=== PATIENT | female | born 1955 | race Caucasian/White ===

== ENCOUNTER 2017-08-28 11:56 | Inpatient (IN) | payer OTHER ==
[~2017-08-28] VITALS: Ht 162.6 cm; Wt 107.6 kg
[2017-08-28] MEDS ORDERED: ONDANSETRON 2MG/ML, 2ML ONE (12:07)
[2017-08-28] MEDS ORDERED: NALOXONE 0.4 MG/ML, 1ML ONE ×2 (12:07→12:51)
[2017-08-28] MEDS: NALOXONE 0.4 MG/ML, 1ML IVPush PRN ×2 (12:10→12:53)
[2017-08-28] MEDS ORDERED: SODIUM CHLORIDE FLUSH 10ML SYR IVF ONE (12:30)
[2017-08-28] MEDS ORDERED: ONDANSETRON 2MG/ML, 2ML IVPush ONE (12:30)
[2017-08-28 12:35] LABS: MEAN CORPUSCULAR HEMOGLOBIN 32.8 pg (27.0-34.8); MEAN CORPUSCULAR HGB CONC 33.1 g/dL (32.4-35.8); PLATELET COUNT 226 x10^3/uL (130-400); RED BLOOD COUNT 4.84 x10^6/uL (3.82-5.3); RED CELL DISTRIBUTION WIDTH 15.1 % (9.6-15.2)
[2017-08-28 12:47] LABS: ALANINE AMINOTRANSFERASE 35 U/L (12-78); ALBUMIN 3.5 g/dL (3.4-5.0); ANION GAP 8 mmol/L (5-15); CALCIUM 7.3 mg/dL (8.5-10.1); CHLORIDE 101 mmol/L (98-107); CREATININE 1.74 mg/dL (0.55-1.02); SALICYLATE LEVEL 3.8 mg/dL (2.8-20.0)
[2017-08-28 12:49] LABS: ALKALINE PHOSPHATASE 81 U/L (45-117); BILIRUBIN,TOTAL 0.3 mg/dL (0.2-1.0); TOTAL PROTEIN 7.5 g/dL (6.4-8.2)
[2017-08-28 12:55] LABS: MD YES
[2017-08-28] MEDS ORDERED: SIMV20TA3 PO (12:55)
[2017-08-28] MEDS ORDERED: MELO15TA24 PO (12:55)
[2017-08-28] MEDS ORDERED: OXYB5TAB7 PO (12:55)
[2017-08-28] MEDS ORDERED: CHLO10CA6 PO (12:55)
[2017-08-28] MEDS ORDERED: OXYC5TAB3 PO (12:55)
[2017-08-28] MEDS ORDERED: PANT40TA5 PO (12:55)
[2017-08-28] MEDS ORDERED: LEVO112T2 PO (12:55)
[2017-08-28] MEDS ORDERED: PREG75CA PO (12:55)
[2017-08-28] MEDS ORDERED: DICY10CA3 PO (12:55)
[2017-08-28] MEDS ORDERED: VENL25TA PO (12:55)
[2017-08-28 12:56] LABS: ACETAMINOPHEN < 2 mcg/mL (10-30)
[2017-08-28 12:57] LABS: LYMPH#(MANUAL) 1.91 x10^3/uL (1-3.4); LYMPHS% (MANUAL) 8 % (22-44); MONOS#(MANUAL) 2.39 x10^3/uL (0.3-2.7); MONOS% (MANUAL) 10 % (2-9)
[2017-08-28] MEDS ORDERED: NALOXONE 4 MG in SODIUM CHLORIDE 0.9% 1,000 ML IV SCH ×2 (13:00→23:30)
[2017-08-28] MEDS ORDERED: NALOXONE 0.4 MG/ML, 1ML IVPush ONE (13:00)
[2017-08-28 13:03] LABS: BAND#(MANUAL) 2.39 x10^3/uL; BANDS%(MANUAL) 10 % (0-7); NRBC % (MANUAL) 1 % (0-1)
[2017-08-28 13:04] LABS: SEGS% (MANUAL) 72 % (42-75)
[2017-08-28 13:06] LABS: <PLATELET ESTIMATE> ADEQUATE; <PLT MORPHOLOGY> NORMAL PLT MORPH
[2017-08-28 13:08] LABS: ANISOCYTOSIS 1+; PMNS WITH VACUOLES 1+; POLYCHROMASIA 1+
[2017-08-28 13:27] LABS: MICROSCOPIC INDICATED
[2017-08-28] MEDS ORDERED: CEFTRIAXONE PMX 1GM/50ML 50 ML IV ONE (13:30)
[2017-08-28 13:33] LABS: AMPHETAMINE SCREEN, URINE Negative (Negative); BARBITURATE SCREEN, URINE Negative (Negative); BENZODIAZEPINE SCREEN, URINE Positive (Negative); CANNABINOID SCREEN, URINE Positive (Negative); COCAINE SCREEN, URINE Negative (Negative); METHADONE SCREEN, URINE Negative (Negative); OPIATE SCREEN, URINE Positive (Negative)
[2017-08-28 13:44] LABS: CULTURE INDICATED? NO
[2017-08-28] MEDS ORDERED: CEFTRIAXONE PMX 1GM/50ML 50 ML ONE (13:48)
[2017-08-28] MEDS ORDERED: SODIUM CHLORIDE 0.9% 1,000ML IVBOLUS ONE (14:00)
[2017-08-28] MEDS ORDERED: CYCL5TAB PO (14:20)
[2017-08-28] MEDS ORDERED: AMIT10TA PO (14:20)
[2017-08-28] MEDS ORDERED: DOCUSATE 100 MG CAPSULE PO PRN (14:30)
[2017-08-28] MEDS ORDERED: POLYETHYLENE GLYCOL 17 GM PACKET PO PRN (14:30)
[2017-08-28] MEDS ORDERED: BISACODYL 10 MG SUPP PR PRN (14:30)
[2017-08-28] MEDS ORDERED: ONDANSETRON 2MG/ML, 2ML IVPush PRN (14:30)
[2017-08-28] MEDS ORDERED: METRONIDAZOLE PMX 500MG/100ML 100 ML ONE (14:51)
[2017-08-28] MEDS: METRONIDAZOLE PMX 500MG/100ML 100 ML IV SCH ×2 (15:04→22:15)
[2017-08-28] MEDS: SODIUM CHLORIDE 0.9% 1,000 ML IV SCH (15:04)
[2017-08-28 16:35] VITALS: BP 106/68
[2017-08-28] MEDS: HEPARIN 5,000 UNITS/ML, 1ML SQ SCH (17:06)
[2017-08-28] MEDS: NICOTINE 7 MG/24 HR PATCH.TD24 TD SCH (17:19)
[2017-08-28] MEDS ORDERED: FAMOTIDINE 20 MG/2 ML IVPush SCH (21:00)
[2017-08-29] MEDS: HEPARIN 5,000 UNITS/ML, 1ML SQ SCH ×3 (00:03→16:09)
[2017-08-29] MEDS: NALOXONE 4 MG in SODIUM CHLORIDE 0.9% 1,000 ML IV SCH ×2 (00:03→09:33)
[2017-08-29] MEDS: SODIUM CHLORIDE 0.9% 1,000 ML IV SCH (00:29)
[2017-08-29 04:35] LABS: MEAN CORPUSCULAR HGB CONC 33.5 g/dL (32.4-35.8); MEAN CORPUSCULAR VOLUME 98.7 fL (80-100); MEAN PLATELET VOLUME 8.2 fL (7.4-10.4); PLATELET COUNT 205 x10^3/uL (130-400); RED BLOOD COUNT 4.36 x10^6/uL (3.82-5.3)
[2017-08-29 04:41] LABS: ALANINE AMINOTRANSFERASE 119 U/L (12-78); ALBUMIN 3.1 g/dL (3.4-5.0); ANION GAP 5 mmol/L (5-15); CALCIUM 7.4 mg/dL (8.5-10.1); CHLORIDE 109 mmol/L (98-107); CREATININE 0.78 mg/dL (0.55-1.02)
[2017-08-29 04:42] VITALS: BP 108/92
[2017-08-29 04:44] LABS: ALKALINE PHOSPHATASE 63 U/L (45-117); BILIRUBIN,TOTAL 0.4 mg/dL (0.2-1.0); TOTAL PROTEIN 6.7 g/dL (6.4-8.2)
[2017-08-29 05:01] LABS: MD YES
[2017-08-29 05:03] LABS: <PLATELET ESTIMATE> ADEQUATE; <PLT MORPHOLOGY> NORMAL PLT MORPH; ANISOCYTOSIS 1+; BAND#(MANUAL) 1.11 x10^3/uL; BANDS%(MANUAL) 5 % (0-7); LYMPH#(MANUAL) 1.77 x10^3/uL (1-3.4); LYMPHS% (MANUAL) 8 % (22-44); MONOS#(MANUAL) 0.88 x10^3/uL (0.3-2.7); MONOS% (MANUAL) 4 % (2-9); POLYCHROMASIA 1+; SEG#(MANUAL) 18.34 x10^3/uL (1.8-6.8); SEGS% (MANUAL) 83 % (42-75)
[2017-08-29] MEDS: METRONIDAZOLE PMX 500MG/100ML 100 ML IV SCH ×2 (05:26→16:08)
[2017-08-29] MEDS ORDERED: SODIUM PHOSPHATE 20 MMOL in SODIUM CHLORIDE 0.9% 500 ML IV ONE (07:30)
[2017-08-29] MEDS ORDERED: CEFTRIAXONE PMX 1GM/50ML 50 ML IV SCH (11:00)
[2017-08-29 13:08] VITALS: BP 149/83
[2017-08-29] MEDS: CEFTRIAXONE 2 GM in DEXTROSE 5% 50 ML IV SCH (14:55)
[2017-08-29] MEDS: NICOTINE 7 MG/24 HR PATCH.TD24 TD SCH (16:09)
[2017-08-29 18:51] VITALS: BP 125/68
[2017-08-29] MEDS: ACETAMINOPHEN 325 MG TABLET PO PRN (21:27)
[2017-08-30] MEDS: HEPARIN 5,000 UNITS/ML, 1ML SQ SCH ×4 (00:03→23:55)
[2017-08-30] MEDS: METRONIDAZOLE PMX 500MG/100ML 100 ML IV SCH ×4 (00:04→23:55)
[2017-08-30 01:41] VITALS: BP 131/82
[2017-08-30 07:15] VITALS: BP 136/79
[2017-08-30] MEDS: ACETAMINOPHEN 325 MG TABLET PO PRN (08:58)
[2017-08-30 12:46] VITALS: BP 128/67
[2017-08-30] MEDS: NICOTINE 7 MG/24 HR PATCH.TD24 TD SCH (14:51)
[2017-08-30] MEDS: CEFTRIAXONE 2 GM in DEXTROSE 5% 50 ML IV SCH (14:51)
[2017-08-30] MEDS ORDERED: POTASSIUM PHOS 4.4 MEQ/ML IV ONE (15:00)
[2017-08-30] MEDS ORDERED: POTASSIUM PHOSPHATE 22 MEQ in SODIUM CHLORIDE 0.9% 500 ML IV ONE (15:00)
[2017-08-30 19:24] VITALS: BP 158/89
[2017-08-31 01:05] VITALS: BP 135/83
[2017-08-31 01:15] LABS: CLOSTRIDIUM DIFFICILE ANTIGEN NEGATIVE; CLOSTRIDIUM DIFFICILE TOXIN NEGATIVE (Negative)
[2017-08-31] MEDS: ACETAMINOPHEN 325 MG TABLET PO PRN ×2 (02:18→08:15)
[2017-08-31 06:58] VITALS: BP 143/79
[2017-08-31] MEDS: HEPARIN 5,000 UNITS/ML, 1ML SQ SCH (08:07)
[2017-08-31] MEDS: METRONIDAZOLE PMX 500MG/100ML 100 ML IV SCH (08:07)
[2017-08-31] MEDS ORDERED: CEFD300C37 PO (13:13)
[2017-08-31] MEDS ORDERED: METR500T PO (13:13)
[2017-08-31] MEDS: NICOTINE 7 MG/24 HR PATCH.TD24 TD SCH (15:01)
== END 2017-08-31 16:42 | disposition home or self-care (01) | DRG 917 ==
LOC: ED 13:41 → EDIP 13:42 → ED 14:06 → CCU 15:46 → 3NE 08-29 13:21
PROVIDERS: ADMIT Internal Medicine; ATTEND Family Medicine
PROC: 0T9B70Z Drainage of Bladder with Drainage Device, Via Natural or Artificial Opening (ICD-10-PCS; principal; 2017-08-28)
DX: T40.601A Poisoning by unspecified narcotics, accidental (unintentional), initial encounter (principal); J96.01 Acute respiratory failure with hypoxia; J69.0 Pneumonitis due to inhalation of food and vomit; N17.0 Acute kidney failure with tubular necrosis; G92 Toxic encephalopathy; Z68.41 Body mass index [BMI] 40.0-44.9, adult; E87.5 Hyperkalemia; E03.9 Hypothyroidism, unspecified; F13.90 Sedative, hypnotic, or anxiolytic use, unspecified, uncomplicated; G89.29 Other chronic pain; M79.7 Fibromyalgia; Z79.891 Long term (current) use of opiate analgesic; Z87.891 Personal history of nicotine dependence; Z88.0 Allergy status to penicillin; Z88.6 Allergy status to analgesic agent; Y92.89 Other specified places as the place of occurrence of the external cause; E66.01 Morbid (severe) obesity due to excess calories
CPT/HCPCS: 36415; 71045; 80053; 80307; 80329; 81001; 83605; 83735; 84100; 84132; 84145; 85025; 87040; 87081; 87324; 93005; 96365; 96375; J0696; J1644; J2310; J2405; G0480; J7030; J7040; S0028